=== PATIENT | female | born 1985 | race American Indian/Alaskan Native ===

== ENCOUNTER 2016-12-17 18:57 | Inpatient (IN) | payer MEDICAID, OTHER ==
[2016-12-17] MEDS ORDERED: Oxytocin/Lactated Ringers 10 UNIT/1,000 ML BAG IV SCH ×2 (19:30→20:00)
[2016-12-17] MEDS: Lactated Ringers 1,000 ML IV SCH ×3 (19:45→22:11)
[2016-12-17] MEDS ORDERED: Sodium Chloride 0.9% 10 ML Syringe FLUSH PRN (20:00)
[2016-12-17] MEDS ORDERED: Ondansetron 4 MG/2 ML SDV IVPUSH PRN ×2 (20:00→21:23)
[2016-12-17] MEDS ORDERED: Nalbuphine 20 MG/1 ML Amp IVPUSH PRN (20:00)
[2016-12-17] MEDS ORDERED: Ampicillin 2 GM Vial ONE (20:18)
[2016-12-17] MEDS ORDERED: Sodium Chloride 0.9% 100 ML ONE (20:19)
[2016-12-17] MEDS ORDERED: Ampicillin 2 GM in Sodium Chloride 0.9% 100 ML IV STA (20:28)
[2016-12-17] MEDS ORDERED: Lidocaine 1.5% with EPINEPHrine 1:200,000 5 ML Amp ONE (20:57)
[2016-12-17] MEDS ORDERED: Bupivacaine 0.25% 10 ML SDV ONE (20:57)
[2016-12-17] MEDS ORDERED: ePHEDrine 50 MG/ML SDV IVPUSH PRN (21:23)
--- NOTE | 2016-12-17 21:27 | PCM.PREANE ---
Preanesthetic Assessment - Anesthesia/Transfusion/Family Hx Anesthesia History: Prior Anesthesia Without Reaction Family History of Anesthesia Reaction: No Transfusion History: Prior Transfusion Without Reaction Intubation History: Unknown - Review of Systems General: No Symptoms Pulmonary: No Symptoms Cardiovascular: No Symptoms Gastrointestinal: No Symptoms Neurological: No Symptoms Other: Reports: None - Physical Assessment NPO Status Date: 12/17/16 NPO Status Time: 17:30 Pulse: 56 O2 Sat by Pulse Oximetry: 99 Respiratory Rate: 20 Blood Pressure: 124/68 Temperature: 37.0 C Height: 1.73 m Weight: 105.687 kg ASA Class: 2 Mental Status: Alert & Oriented x3 Airway Class: Mallampati = 2 Dentition: Reports: Normal Dentition, Caries Thyro-Mental Finger Breadths: 3 Mouth Opening Finger Breadths: 3 ROM/Head Extension: Full Lungs: Clear to Auscultation, Normal Respiratory Effort Cardiovascular: Regular Rate, Regular Rhythm, No Murmurs - Lab Values: Laboratory Last Values WBC 11.28 K/mm3 (3.98-10.04) H 12/17/16 20:20 RBC 4.60 M/mm3 (3.98-5.22) 12/17/16 20:20 Hgb 11.8 gm/L (11.2-15.7) 12/17/16 20:20 Hct 35.3 % (34.1-44.9) 12/17/16 20:20 MCV 76.7 fl (79.4-94.8) L 12/17/16 20:20 MCH 25.7 pg (25.6-32.2) 12/17/16 20:20 MCHC 33.4 g/dl (32.2-35.5) 12/17/16 20:20 RDW Std Deviation 39.8 fL (36.4-46.3) 12/17/16 20:20 Plt Count 243 K/mm3 (182-369) 12/17/16 20:20 MPV 10.8 fl (9.4-12.3) 12/17/16 20:20 Neut % (Auto) 69.8 % (34.0-71.1) 12/17/16 20:20 Lymph % (Auto) 22.5 % (19.3-51.7) 12/17/16 20:20 [place] % (Auto) 6.7 % (4.7-12.5) 12/17/16 20:20 Eos % (Auto) 0.6 (0.7-5.8) L 12/17/16 20:20 Baso % (Auto) 0.2 % (0.1-1.2) 12/17/16 20:20 Neut # (Auto) 7.87 K/mm3 (1.56-6.13) H 12/17/16 20:20 Lymph # (Auto) 2.54 K/mm3 (1.18-3.74) 12/17/16 20:20 [place] # (Auto) 0.76 K/mm3 (0.24-0.36) H 12/17/16 20:20 Eos # (Auto) 0.07 K/mm3 (0.04-0.36) 12/17/16 20:20 Baso # (Auto) 0.02 K/mm3 (0.01-0.08) 12/17/16 20:20 Blood Type O POSITIVE 12/17/16 20:20 Gel Antibody Screen Negative 12/17/16 20:20 Above labs reviewed and noted. 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 - Anesthesia Plan Pre-Op Medication Ordered: None - Acknowledgements Anesthesia Type Planned: Epidural Pt an Appropriate Candidate for the Planned Anesthesia: Yes Alternatives and Risks of Anesthesia Discussed w Pt/Guardian: Yes Pt/Guardian Understands and Agrees with Anesthesia Plan: Yes PreAnesthesia Questionnaire - Past Health History Medical/Surgical History: Denies Medical/Surgical History - SUBSTANCE USE Smoking Status *Q: Current Every Day Smoker Second Hand Smoke Exposure: Yes Days Per Week of Alcohol Use: 1 Number of Drinks Per Day: 6 Total Drinks Per Week: 6 Recreational Drug Use History: Yes Recreational Drug Type: Reports: Marijuana/Hashish - HOME MEDS Home Medications: Home Meds . [No Known Home Meds] 04/11/13 [History] - CURRENT (IN HOUSE) MEDS Current Meds: Current Medications Ephedrine Sulfate (Ephedrine Sulfate) 5 mg IVPUSH ASDIRECTED PRN PRN Reason: Hypotension Fentanyl (Sublimaze) 100 mcg EPIDUR Q3H PRN PRN Reason: Pain Fentanyl/Bupivacaine HCl (Fentanyl/Bupivacaine/Ns 2 Mcg-0.125% 100 Ml) 100 ml EPIDUR ASDIRECTED [facility] Lactated Ringer's (Ringers, Lactated) 1,000 mls @ 100 mls/hr IV ASDIRECTED EDMUND Last Admin: 12/17/16 21:16 Dose: 999 mls/hr Oxytocin/Lactated Ringer's (Pitocin In Lr 10 Units/1,000 Ml) 10 unit in 1,000 mls @ 500 mls/hr IV .CONTINUOUS [facility] Ampicillin Sodium 1 gm/ Sodium (Chloride) 50 mls @ 100 mls/hr IV Q4H EDMUND Nalbuphine HCl (Nubain) 10 mg IVPUSH Q2H PRN PRN Reason: Pain (moderate 4-6) Ondansetron HCl (Zofran) 4 mg IVPUSH Q4H PRN PRN Reason: Nausea/Vomiting Ondansetron HCl (Zofran) 4 mg IVPUSH ONETIME PRN PRN Reason: Nausea/Vomiting Sodium Chloride (Saline Flush) 10 ml FLUSH ASDIRECTED PRN PRN Reason: Keep Vein Open Discontinued Medications Ampicillin Sodium (Ampicillin) Confirm Administered Dose 2 gm .ROUTE .STK-MED ONE Stop: 12/17/16 20:19 Ampicillin Sodium 2 gm/ Sodium (Chloride) 100 mls @ 200 mls/hr IV NOW STA Stop: 12/17/16 20:57 Last Admin: 12/17/16 20:35 Dose: 200 mls/hr Sodium Chloride (Normal Saline) Confirm Administered Dose 100 mls @ as directed .ROUTE .STK-MED ONE Stop: 12/17/16 20:20
[2016-12-17] MEDS: Bupivacaine/fentaNYL/NS 100 ML Bag EPIDUR SCH (21:34)
[2016-12-17] MEDS: fentaNYL 100 MCG/2 ML SDV EPIDUR PRN (21:35)
[2016-12-18] MEDS: Ampicillin 1 GM in Sodium Chloride 0.9% 50 ML IV SCH ×3 (00:38→11:17)
[2016-12-18] MEDS: fentaNYL 100 MCG/2 ML SDV EPIDUR PRN (03:38)
[2016-12-18] MEDS: Lactated Ringers 1,000 ML IV SCH (03:47)
[2016-12-18] MEDS: Bupivacaine/fentaNYL/NS 100 ML Bag EPIDUR SCH (05:52)
--- NOTE | 2016-12-18 09:31 | PCM.LDHP ---
L&D History of Present Illness - General Date of Service: 12/17/16 Admit Problem/Dx: Patient Status Order with Admit Dx/Problem 12/17/16 20:00 Patient Status [ADT] Routine Admission Diagnosis/Problem Admission Diagnosis/Problem and not yet delivered in third trimester - History of Present Illness Introduction:: Admitted at 40w5d for induction of labor. care with myself complicated by prior 10#2oz infant and incarceration. Pain Score: 7 - Related Data Allergies/Adverse Reactions: Allergies Allergy/AdvReac Type Severity Reaction Status Date / Time No Known Allergies Allergy Verified 04/21/14 19:50 [employer] Home Medications: Home Meds . 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: Hematologic History: Reports: Blood Transfusion(s) Other Hematologic History: Prior hx; without complications - Infectious Disease History Infectious Disease History: Reports: Human Papilloma Virus (HPV) - Past Surgical History HEENT Surgical History: Reports: Oral Surgery Other HEENT Surgeries/Procedures: [place] teeth removed 2005 Musculoskeletal Surgical History: Reports: Other (See Below) Other Musculoskeletal Surgeries/Procedures:: Femur fracture with pinning Social & Family History - Family History Family Medical History: Noncontributory - Tobacco Use Smoking Status *Q: Current Every Day Smoker Years of Tobacco use: 4 Used Tobacco, but Quit: Yes Month Tobacco Last Used: 03/2016 Second Hand Smoke Exposure: Yes - Caffeine Use Caffeine Use: Reports: Other Other Caffeine Use: One caffeine containing bevarage per day per pt - Alcohol Use Days Per Week of Alcohol Use: 1 Number of Drinks Per Day: 6 Total Drinks Per Week: 6 - Recreational Drug Use Recreational Drug Use: Yes Drug Use in Last 12 Months: Yes Recreational Drug Type: Reports: Marijuana/Hashish Recreational Drug Use Frequency: Not Used In Over 6 Months Recreational Drug Last Use: 03/2016 H&P Review of Systems - Review of Systems: Review Of Systems: See Below General: Reports: No Symptoms HEENT: Reports: No Symptoms Pulmonary: Reports: No Symptoms Cardiovascular: Reports: No Symptoms Gastrointestinal: Reports: No Symptoms Genitourinary: Reports: No Symptoms Musculoskeletal: Reports: No Symptoms Skin: Reports: No Symptoms Psychiatric: Reports: No Symptoms Neurological: Reports: No Symptoms Hematologic/Lymphatic: Reports: No Symptoms Immunologic: Reports: No Symptoms L&D Exam - Exam Exam: See Below - Vital Signs Vital Signs: Last Vital Signs Temp 37.0 C 12/17/16 21:41 Pulse 56 L 12/17/16 21:41 Resp 20 12/17/16 21:41 BP 124/68 12/17/16 21:41 Pulse Ox 99 12/17/16 21:41 Weight: 105.687 kg - OB Specific Contraction Intensity: Irritability Heart Tones per Min: 140 Heart Rate (FHR) Variability: Moderate (6-25 bmp) Presentation: Vertex - Foley Score Foley Score Cervix Position: Posterior Foley Score Consistency: Soft Foley Score Effacement: 31-50% Foley Score Dilation: 3-4 cm Foley Score Infant's Station: -3 Foley Score Total: 5 - Exam General: Alert, Oriented HEENT: PERRLA, Conjunctiva Clear, EACs Clear, EOMI, Hearing Intact, Mucosa Moist & [place], Nares Patent, Normal Nasal Septum, Posterior Pharynx Clear, TMs Clear Neck: Supple, Trachea Midline Lungs: Clear to Auscultation, Normal Respiratory Effort Cardiovascular: Regular Rate, Regular Rhythm GI/Abdominal Exam: Normal Bowel Sounds, Soft, Non-Tender, No Organomegaly, No Distention, No Abnormal Bruit, No Mass, Pelvis Stable Genitourinary: Normal external exam, Normal bimanual exam, Normal speculum exam Back Exam: Normal Inspection, Full Range of Motion Extremities: Normal Inspection, Normal Range of Motion, Non-Tender, No Pedal Edema, Normal Capillary Refill Skin: Warm, Dry, Intact Neurological: Cranial Nerves Intact, Reflexes Equal Bilateral Psychiatric: Alert, Normal Affect, Normal Mood - Patient Data Lab Results Last 24 hrs: Laboratory Results - last 24 hr 12/17/16 12/17/16 Range/Units 20:20 20:20 WBC 11.28 H (3.98-10.04) K/mm3 RBC 4.60 (3.98-5.22) M/mm3 Hgb 11.8 (11.2-15.7) gm/L Hct 35.3 (34.1-44.9) % MCV 76.7 L (79.4-94.8) fl MCH 25.7 (25.6-32.2) pg MCHC 33.4 (32.2-35.5) g/dl RDW Std Deviation 39.8 (36.4-46.3) fL Plt Count 243 (182-369) K/mm3 MPV 10.8 (9.4-12.3) fl Neut % (Auto) 69.8 (34.0-71.1) % Lymph % (Auto) 22.5 (19.3-51.7) % [place] % (Auto) 6.7 (4.7-12.5) % Eos % (Auto) 0.6 L (0.7-5.8) Baso % (Auto) 0.2 (0.1-1.2) % Neut # (Auto) 7.87 H (1.56-6.13) K/mm3 Lymph # (Auto) 2.54 (1.18-3.74) K/mm3 [place] # (Auto) 0.76 H (0.24-0.36) K/mm3 Eos # (Auto) 0.07 (0.04-0.36) K/mm3 Baso # (Auto) 0.02 (0.01-0.08) K/mm3 Blood Type O POSITIVE Gel Antibody Screen Negative Result Diagrams: 12/17/16 20:20 Problem List Initiated/Reviewed/Updated: Yes Orders Last 24hrs: Active Orders 24 hr Category Date Time Status Patient Status [ADT] Routine ADT 12/17/16 20:00 Active Activity as Tolerated [RC] PFP Care 12/17/16 20:00 Active Communication Order [RC] ASDIRECTED Care 12/17/16 20:00 Active Heart Tones [RC] ASDIRECTED Care 12/17/16 20:01 Active Notify Provider [RC] ASDIRECTED Care 12/17/16 21:23 Active Notify Provider [RC] PFP Care 12/17/16 20:00 Active Notify Provider [RC] PRN Care 12/17/16 20:00 Active Oxygen Therapy [RC] ASDIRECTED Care 12/17/16 21:23 Active Peripheral IV Care [RC] . DIRECTED Care 12/17/16 20:01 Active Pulse Oximetry [RC] ASDIRECTED Care 12/17/16 21:23 Active Vital Signs [RC] PER UNIT ROUTINE Care 12/17/16 20:00 Active Ampicillin 1 gm Med 12/18/16 00:45 Active Sodium Chloride 0.9% [Normal Saline] 50 ml IV Q4H Bupivacaine/fentaNYL/NS [fentaNYL/Bupivacaine/NS 2 MCG- Med 12/17/16 21:30 Active 0.125% 100 ML] 100 ml EPIDUR ASDIRECTED Lactated Ringers [Ringers, Lactated] 1,000 ml Med 12/17/16 20:00 Active IV ASDIRECTED Nalbuphine [Nubain] Med 12/17/16 20:00 Active 10 mg IVPUSH Q2H PRN Ondansetron [Zofran] Med 12/17/16 21:23 Active 4 mg IVPUSH ONETIME PRN Ondansetron [Zofran] Med 12/17/16 20:00 Active 4 mg IVPUSH Q4H PRN Oxytocin/Lactated Ringers [Pitocin in LR 10 Units/1,000 Med 12/17/16 20:00 Active ML] 10 unit in 1,000 ml IV .CONTINUOUS Oxytocin/Lactated Ringers [Pitocin in LR 10 Units/1,000 Med 12/17/16 19:30 Active ML] 10 unit in 1,000 ml IV TITRATE Sodium Chloride 0.9% [Saline Flush] Med 12/17/16 20:00 Active 10 ml FLUSH ASDIRECTED PRN ePHEDrine [ePHEDrine Sulfate] Med 12/17/16 21:23 Active 5 mg IVPUSH ASDIRECTED PRN fentaNYL [Sublimaze] Med 12/17/16 21:23 Active 100 mcg EPIDUR Q3H PRN Electronic Heart Tones Ext w TOCO [WOMSER] Ot 12/17/16 20:00 Ordered Routine Electronic Heart Tones Internal [WOMSER] Per Unit Ot 12/17/16 20:00 Ordered Routine Peripheral IV Insertion Adult [OM.PC] Routine Oth 12/17/16 20:00 Ordered Resuscitation Status Routine Resus Stat 12/17/16 20:00 Ordered Medication Orders Ephedrine Sulfate (Ephedrine Sulfate) 5 mg IVPUSH ASDIRECTED PRN PRN Reason: Hypotension Fentanyl (Sublimaze) 100 mcg EPIDUR Q3H PRN PRN Reason: Pain Last Admin: 12/18/16 03:38 Dose: 100 mcg Admin: 12/17/16 21:35 Dose: 100 mcg Fentanyl/Bupivacaine HCl (Fentanyl/Bupivacaine/Ns 2 Mcg-0.125% 100 Ml) 100 ml EPIDUR ASDIRECTED EDMUND Last Admin: 12/18/16 05:52 Dose: 100 ml Admin: 12/17/16 21:34 Dose: 100 ml Lactated Ringer's (Ringers, Lactated) 1,000 mls @ 100 mls/hr IV ASDIRECTED EDMUND Last Admin: 12/18/16 03:47 Dose: 100 mls/hr Infusion: 12/18/16 03:47 Dose: 100 mls/hr Admin: 12/17/16 22:11 Dose: 100 mls/hr Infusion: 12/17/16 22:11 Dose: 999 mls/hr Admin: 12/17/16 21:16 Dose: 999 mls/hr Infusion: 12/17/16 21:16 Dose: 999 mls/hr Infusion: 12/17/16 20:50 Dose: 999 mls/hr Infusion: 12/17/16 20:05 Dose: 100 mls/hr Admin: 12/17/16 19:45 Dose: 500 mls/hr Oxytocin/Lactated Ringer's (Pitocin In Lr 10 Units/1,000 Ml) 10 unit in 1,000 mls @ 500 mls/hr IV .CONTINUOUS EDMUND Ampicillin Sodium 1 gm/ Sodium (Chloride) 50 mls @ 100 mls/hr IV Q4H EDMUND Last Admin: 12/18/16 04:29 Dose: 100 mls/hr Infusion: 12/18/16 01:08 Dose: 100 mls/hr Admin: 12/18/16 00:38 Dose: 100 mls/hr Oxytocin/Lactated Ringer's (Pitocin In Lr 10 Units/1,000 Ml) 10 unit in 1,000 mls @ 12 mls/hr IV TITRATE EDMUND; 2 MUNITS/MIN PRN Reason: Protocol Last Titration: 12/18/16 05:50 Dose: 8 munits/min, 48 mls/hr Titration: 12/18/16 05:10 Dose: 6 munits/min, 36 mls/hr Titration: 12/18/16 04:40 Dose: 4 munits/min, 24 mls/hr Titration: 12/18/16 03:53 Dose: 2 munits/min, 12 mls/hr Titration: 12/18/16 03:22 Dose: 4 munits/min, 24 mls/hr Titration: 12/18/16 01:20 Dose: 6 munits/min, 36 mls/hr Titration: 12/18/16 00:40 Dose: 4 munits/min, 24 mls/hr Admin: 12/18/16 00:00 Dose: 2 munits/min, 12 mls/hr Nalbuphine HCl (Nubain) 10 mg IVPUSH Q2H PRN PRN Reason: Pain (moderate 4-6) Ondansetron HCl (Zofran) 4 mg IVPUSH Q4H PRN PRN Reason: Nausea/Vomiting Ondansetron HCl (Zofran) 4 mg IVPUSH ONETIME PRN PRN Reason: Nausea/Vomiting Sodium Chloride (Saline Flush) 10 ml FLUSH ASDIRECTED PRN PRN Reason: Keep Vein Open Assessment/Plan Comment:: Term induction. AROM clear fluid. Pitocin as indicated. Anticipate .
--- NOTE | 2016-12-18 09:33 | PCM.SN ---
- Free Text/Narrative Note: of viable male. Wt 8#7oz, 8/9 APGARS. At 8:50am. Second degree MLL repaired with 3-0 vicryl.
[2016-12-18] MEDS ORDERED: Benzocaine/Menthol 20%-0.5% Spray 56 GM Canister TOP PRN (09:42)
[2016-12-18] MEDS ORDERED: Witch Hazel Medicated Pads 100/Jar TOP PRN (09:42)
[2016-12-18] MEDS ORDERED: Lanolin 100% Cream 7 GM Tube TOP PRN (09:42)
[2016-12-18] MEDS: Ibuprofen 600 MG Tab PO PRN ×2 (10:21→21:55)
[2016-12-19] MEDS: Ibuprofen 600 MG Tab PO PRN (06:11)
[2016-12-19 06:42] VITALS: BP 133/73
--- NOTE | 2016-12-19 09:31 | PCM48HPAN ---
Post Anesthesia Note - EVALUATION WITHIN 48HRS OF ANESTHETIC Vital Signs in Normal Range: Yes Patient Participated in Evaluation: Yes Respiratory Function Stable: Yes Airway Patent: Yes Cardiovascular Function Stable: Yes Hydration Status Stable: Yes Pain Control Satisfactory: Yes Nausea and Vomiting Control Satisfactory: Yes Mental Status Recovered: Yes
[2016-12-19] MEDS ORDERED: Docusate Sodium 100 MG Cap PO PRN (10:05)
--- NOTE | 2016-12-19 10:17 | PCM.DCSUM1 ---
Discharge Summary - Hospital Course Free Text/Narrative:: Term intrauterine , delivered Brief History: Patient is admitted for induction of labor on 12/18/2016 progressed through labor and had a normal spontaneous vaginal delivery. She had an of viable male. Wt 8#7oz, 8/9 APGARS. At 8:50am. Second degree MLL repaired with 3-0 vicryl. patient is done well. [facility] [place] She will be going back to their. The baby will be going with her significant other to [facility]. Patient will be bottlefeeding. - Discharge Data Discharge Date: 12/19/16 Discharge Disposition: Home, Self-Care 01 Condition: Good - Patient Instructions Diet: Regular Diet as Tolerated Activity: As Tolerated (No intercourse or tampons until bleeding resolves) Driving: Do Not Drive Showering/Bathing: May Shower (May take a bath) Notify Provider of: Fever, Increased Pain, Swelling and Redness, Nausea and/or Vomiting - Discharge Plan Home Medications: Home Meds RX: Ibuprofen [IJD: Ibuprofen] 600 mg PO Q6H PRN tablet 12/19/16 [Rx] Patient Handouts: Smoking Hazards, Stimulant Use Disorder-Amphetamines, Vaginal Delivery, Care After, Smoking Cessation, Tips for Success Referrals: Jasmyn Fernando MD [Physician] - - Discharge Summary/Plan Comment DC Time >30 min.: No Discharge Summary/Plan Comment: Discharge instructions: 1. Discharge home 2. Regular, high fiber, diet. 3. Routine precautions given concern increased pain, bleeding, temperature, signs/symptoms of DVT/PE 4. Medications per home medication suspended, discussed risks and given to the patient. 5. Return to clinic-Dr. Mckee-6 weeks. Diagnosis: Term -delivered Condition: Good - Patient Data Vitals - Most Recent: Last Vital Signs Temp 36.1 C 12/19/16 04:00 Pulse 55 L 12/19/16 04:00 Resp 16 12/19/16 04:00 BP 133/73 12/19/16 04:00 Pulse Ox 97 12/18/16 19:57 Weight - Most Recent: 105.687 kg I&O - Last 24 hours: Intake & Output 12/18/16 12/19/16 12/19/16 22:59 06:59 14:59 Intake Total 920 Balance 920 Lab Results - Last 24 hrs: Laboratory Results - last 24 hr 12/19/16 Range/Units 06:59 WBC 13.06 H (3.98-10.04) K/mm3 RBC 3.84 L (3.98-5.22) M/mm3 Hgb 9.9 L (11.2-15.7) gm/L Hct 30.3 L (34.1-44.9) % MCV 78.9 L (79.4-94.8) fl MCH 25.8 (25.6-32.2) pg MCHC 32.7 (32.2-35.5) g/dl RDW Std Deviation 41.5 (36.4-46.3) fL Plt Count 196 (182-369) K/mm3 MPV 11.0 (9.4-12.3) fl Med Orders - Current: Current Medications Benzocaine/Menthol (Dermoplast Pain Relief [place]) 0 gm TOP ASDIRECTED PRN PRN Reason: Perineal Comfort Measure Last Admin: 12/18/16 10:22 Dose: 1 applic Docusate Sodium (Colace) 100 mg PO BID PRN PRN Reason: Constipation Emollient Ointment (Lansinoh Hpa) 0 gm TOP ASDIRECTED PRN PRN Reason: Sore Nipples Ibuprofen (Motrin) 600 mg PO Q6H PRN PRN Reason: Mild pain or fever Last Admin: 12/19/16 06:11 Dose: 600 mg Witch Diane (Tucks) 1 pad TOP ASDIRECTED PRN PRN Reason: Hemorrhoid pain Last Admin: 12/18/16 10:22 Dose: 1 container Discontinued Medications Ampicillin Sodium (Ampicillin) Confirm Administered Dose 2 gm .ROUTE .STK-MED ONE Stop: 12/17/16 20:19 Last Admin: 12/18/16 00:06 Dose: Not Given Ephedrine Sulfate (Ephedrine Sulfate) 5 mg IVPUSH ASDIRECTED PRN PRN Reason: Hypotension Fentanyl (Sublimaze) 100 mcg EPIDUR Q3H PRN PRN Reason: Pain Last Admin: 12/18/16 03:38 Dose: 100 mcg Fentanyl/Bupivacaine HCl (Fentanyl/Bupivacaine/Ns 2 Mcg-0.125% 100 Ml) 100 ml EPIDUR ASDIRECTED EDMUND Last Admin: 12/18/16 05:52 Dose: 100 ml Lactated Ringer's (Ringers, Lactated) 1,000 mls @ 100 mls/hr IV ASDIRECTED EDMUND Last Admin: 12/18/16 03:47 Dose: 100 mls/hr Oxytocin/Lactated Ringer's (Pitocin In Lr 10 Units/1,000 Ml) 10 unit in 1,000 mls @ 500 mls/hr IV .CONTINUOUS EDMUND Ampicillin Sodium 1 gm/ Sodium (Chloride) 50 mls @ 100 mls/hr IV Q4H EDMUND Last Admin: 12/18/16 11:17 Dose: Not Given Ampicillin Sodium 2 gm/ Sodium (Chloride) 100 mls @ 200 mls/hr IV NOW STA Stop: 12/17/16 20:57 Last Admin: 12/17/16 20:35 Dose: 200 mls/hr Sodium Chloride (Normal Saline) Confirm Administered Dose 100 mls @ as directed .ROUTE .[facility]-MED ONE Stop: 12/17/16 20:20 Last Admin: 12/18/16 00:06 Dose: Not Given Oxytocin/Lactated Ringer's (Pitocin In Lr 10 Units/1,000 Ml) 10 unit in 1,000 mls @ 12 mls/hr IV TITRATE EDMUND; 2 MUNITS/MIN PRN Reason: Protocol Last Titration: 12/18/16 08:50 Dose: 500 mls/hr Nalbuphine HCl (Nubain) 10 mg IVPUSH Q2H PRN PRN Reason: Pain (moderate 4-6) Ondansetron HCl (Zofran) 4 mg IVPUSH Q4H PRN PRN Reason: Nausea/Vomiting Ondansetron HCl (Zofran) 4 mg IVPUSH ONETIME PRN PRN Reason: Nausea/Vomiting Sodium Chloride (Saline Flush) 10 ml FLUSH ASDIRECTED PRN PRN Reason: Keep Vein Open *Q Meaningful Use (DIS) - VTE *Q VTE Criteria *Q: - Stroke *Q Stroke Criteria *Q: - AMI *Q AMI Criteria *Q:
[2016-12-19] MEDS ORDERED: Pneumococcal Polyvalent-23 Vaccine 0.5 ML SDV IM ONE (10:45)
[2016-12-19] MEDS ORDERED: Measles, Mumps & Rubella Vaccine 0.5 ML SDV SUBCUT ONE (10:45)
== END 2016-12-19 11:50 | DRG 775 ==
LOC: JD.OB 18:57 → OBSVTOIN 12-18 08:50 → JD.MS 12-18 10:52 → JD.OB 12-18 12:50
PROVIDERS: ADMIT Obstetrics & Gynecology; ATTEND Obstetrics & Gynecology
PROC: 10E0XZZ Delivery of Products of Conception, External Approach (ICD-10-PCS; principal; 2016-12-18)
PROC: 0KQM0ZZ Repair Perineum Muscle, Open Approach (ICD-10-PCS; 2016-12-18)
PROC: 3E033VJ Introduction of Other Hormone into Peripheral Vein, Percutaneous Approach (ICD-10-PCS; 2016-12-18)
PROC: 10907ZC Drainage of Amniotic Fluid, Therapeutic from Products of Conception, Via Natural or Artificial Opening (ICD-10-PCS; 2016-12-18)
PROC: 00HU33Z Insertion of Infusion Device into Spinal Canal, Percutaneous Approach (ICD-10-PCS; 2016-12-18)
PROC: 3E0R3CZ (ICD-10-PCS; 2016-12-18)
DX: O99.824 Streptococcus B carrier state complicating childbirth (principal); O48.0 Post-term pregnancy; Z3A.41 41 weeks gestation of pregnancy; Z37.0 Single live birth; O99.334 Smoking (tobacco) complicating childbirth; O70.1 Second degree perineal laceration during delivery; O69.81X0 Labor and delivery complicated by cord around neck, without compression, not applicable or unspecified
CPT/HCPCS: 36415; 85025; 85027; 86850; 86900; 86901; 90707; 90732; A9270-GY; G0009; J0290; J2590; J3010; J7030; J7050; J7120